=== PATIENT | female | born 1945 | race Caucasian/White ===

== ENCOUNTER 2016-10-27 08:00 | Inpatient (IN) | payer MEDICARE ==
[~2016-10-27] VITALS: Ht 172.7 cm; Wt 80.5 kg
[~2016-10-27 08:00] MED LIST: ACETAMINOPHEN500 M1 PO; BACTROBAN NASAL1 GM NASAL; BAYER CHEWABLE81 MG PO; COZAAR100 MG PO; GLUCOPHAGE500 MG PO; LOPRESSOR25 MG PO; MOBIC7.5 MG PO; NORVASC10 MG PO; OXYBUTYNIN CHLOR5 MG PO; PRAVACHOL40 MG PO
[2016-10-27 08:09] LABS: BASOPHILS 0.8 % (0.0-2.0); EOSINOPHILS 5.8 % (0-7); HEMATOCRIT 37.1 % (36.0-48.0); HEMOGLOBIN 11.6 g/dL (12-16); IMMATURE GRANULOCYTES 0.2 % (0-5); LYMPHOCYTES 35.3 % (15-50); MCH 27.3 pg (26.0-34.0); MCHC 31.3 g/dL (31.0-37.0); MCV 87.3 fL (80.0-100.0); MEAN PLATELET VOLUME 10.8 fL (7.4-10.4); MONOCYTES 10.2 % (2-11); NEUTROPHILS 47.7 % (40-80); PLATELET COUNT 226 10x3/uL (130-400); RBC 4.25 10x6/uL (4.00-5.40); RDW 14.4 % (11.5-14.5)
[2016-10-27 08:18] LABS: ANION GAP 10.8 mmol/L (8-16); CALCIUM 10.7 mg/dL (8.5-10.1); CARBON DIOXIDE 27.5 mmol/L (21.0-32.0); CREATININE - SERUM 0.9 mg/dL (0.6-1.3); POTASSIUM - SERUM 4.3 mmol/L (3.5-5.1)
[2016-10-27 08:24] LABS: APTT 34.1 SECONDS (22.8-39.4); INR 1.07 (0.85-1.17); PROTIME 13.7 SECONDS (11.6-15.0)
[2016-10-27 09:22] LABS: APPEARANCE HAZY (CLEAR); BILIRUBIN NEGATIVE (NEGATIVE); COLOR YELLOW (YELLOW); GLUCOSE NEGATIVE (NEGATIVE); KETONE NEGATIVE (NEGATIVE); LEUKOCYTE ESTERASE 1+ (NEGATIVE); NITRITE NEGATIVE (NEGATIVE); PROTEIN 1+ mg/dL (NEGATIVE); SPECIFIC GRAVITY 1.015 (1.005-1.020)
[2016-10-27 09:23] LABS: BACTERIA MODERATE /hpf (NONE SEEN); EPITHELIAL CELLS 0-5 /hpf (0-5); MUCUS <1+ /lpf (NONE SEEN); WHITE CELLS - URINE OCC /hpf (0-5)
[2016-11-01 08:21] VITALS: BP 153/71; BMI 26.9
--- NOTE | 2016-11-01 12:22 | NUR ---
VANC 1G INFUSING UPON ARRIVAL TO PACU
[2016-11-01 12:45] VITALS: BP 132/70
--- NOTE | 2016-11-01 12:45 | NUR ---
RECEIVED TO ROOM 2210 FROM RECOVERY ROOM VIA BED. ORIENTED TO ROOM AND CALL LIGHT SYSTEM. IS GIVEN TO PATIENT. STATES SHE KNOWS HOW TO USE. IT. SCDs TO BLE. CALL LIGHT IN REACH. FAMILY IN ROOM. WILL CONTINUE WITH PLAN OF CARE.
--- NOTE | 2016-11-01 14:17 | NUR ---
TJ PO. WORRIED ABOUT BP BEING LOW BUT IT IS 116/54 AT THIS TIME. EXPLAINED THAT IT IS OK FOR RIGHT NOW BUT WE WILL KEEP AN EYE ON IT.
--- NOTE | 2016-11-01 16:05 | NUR ---
RESTING WITH EYES CLOSED. RESP EVEN AND UNLABORED. CALL LIGHT IN REACH.
[2016-11-01 17:18] VITALS: BP 118/55
--- NOTE | 2016-11-01 17:40 | NUR ---
FSBS 107. NO INSULIN REQUIRED. EVENING MEDS ADMINISTERED. ANCEF IVPB. WILL PUT ON CPM AFTER PATIENT FINISHES EATING.
--- NOTE | 2016-11-01 18:24 | NUR ---
CPM PLACED TO RLE. NO OTHER CHANGES IN INITIAL ASSESSMENT. SCDs TO LLE. CALL LIGHT IN REACH. WILL CONTINUE WITH PLAN OF CARE.
[2016-11-01 18:40] VITALS: BP 118/55; Ht 172.7 cm; Wt 80.5 kg
[2016-11-01 21:00] VITALS: BP 142/65
[2016-11-02 01:00] VITALS: BP 155/68
--- NOTE | 2016-11-02 02:58 | NUR ---
EYES CLOSED RESPIRATIONS WITH EASE AND UNLABORED.
[2016-11-02 05:00] VITALS: BP 155/70
[2016-11-02 06:06] LABS: BASOPHILS 0.3 % (0.0-2.0); EOSINOPHILS 2.5 % (0-7); HEMATOCRIT 29.2 % (36.0-48.0); IMMATURE GRANULOCYTES 0.2 % (0-5); LYMPHOCYTES 24.9 % (15-50); MCH 27.4 pg (26.0-34.0); MCHC 30.8 g/dL (31.0-37.0); MCV 88.8 fL (80.0-100.0); MEAN PLATELET VOLUME 10.6 fL (7.4-10.4); MONOCYTES 12.3 % (2-11); NEUTROPHILS 59.8 % (40-80); PLATELET COUNT 184 10x3/uL (130-400); RBC 3.29 10x6/uL (4.00-5.40); RDW 14.5 % (11.5-14.5); WBC 6.5 10x3/uL (4.8-10.8)
[2016-11-02 06:47] LABS: ALBUMIN 2.8 g/dL (3.4-5.0); ANION GAP 10.6 mmol/L (8-16); BILIRUBIN - TOTAL 0.57 mg/dL (0.2-1.3); CARBON DIOXIDE 26.7 mmol/L (21.0-32.0); CREATININE - SERUM 0.9 mg/dL (0.6-1.3); POTASSIUM - SERUM 4.3 mmol/L (3.5-5.1); PROTEIN - SERUM 6.1 g/dL (6.4-8.2)
--- NOTE | 2016-11-02 07:20 | NUR ---
REQUESTED AND GIVEN OXY IR 10MG PO FOR C/O RIGHT KNEE PAIN LEVEL 6. WILL MONITOR.
--- NOTE | 2016-11-02 08:15 | NUR ---
AWAKE AND ALERT. CPM OFF. VOIDED 200cc CLEAR YELLOW URINE IN BED COTTRELL. SKIN CARE PER STAFF. LUNG S ARE CLEAR BILATERALLY,NO COUGH NOTED. SKIN IS INTACT WITHOUT REDNESS EXCEPT INCISION TO RIGHT KNEE WHICH HAS A DRY INTACT DRESSING IN PLACE. SCD'S IN PLACE. IV TO LEFT WRIST PATENT WITHOUT REDNESS AT INSERTION SITE. DENIES NEEDS. INSTRUCTED IN USE OF IS.
[2016-11-02 08:47] VITALS: BP 143/54
--- NOTE | 2016-11-02 09:15 | NUR ---
UP TO CHAIR AT BEDSIDE PER PT. REPORTS PAIN ONLY WITH ACTIVITY. ATE ALL OF BREAKFAST. DENIES NEEDS.
--- NOTE | 2016-11-02 12:00 | NUR ---
FSBS 190.REFUSED TO TAKE ANY INSULIN. STATED SHE HAS LIVED THIS LONG WITHOUT IT AND SHE ISN'T STARTING NOW.
--- NOTE | 2016-11-02 12:26 | NUR ---
FSBS 190. REFUSED INSULIN BECAUSE SHE WAS DRINKING A SODA. WILL MONITOR.
[2016-11-02 12:30] VITALS: BP 142/57
--- NOTE | 2016-11-02 16:21 | NUR ---
* Is the patient Alert and Oriented? Yes 0 * How many steps to enter\exit or inside your home? 0 0 * PCP Dr. Olive Paniagua 0 * Pharmacy [facility] 0 * Preadmission Environment Home with Family 0 * ADLs Independent 0 * Equipment Bedside Commode Rolling Walker 0 * List name and contact numbers for known caregivers / representatives who currently or will assist patient after discharge: Spouse - Ravinder [phone] Son - CROW [phone] 0 * Additional services required to return to the preadmission environment? Yes 0 * Can the patient safely return to the preadmission environment? Yes 0 * Has this patient been hospitalized within the prior 30 days at any hospital? No 11/02/2016 16:23 DCP: Discharge Planning Patient Name: CISCO CASTRO Admission Status: Elective Accout number: [id number] Admission Date: 11-01-2016 : 1945 Admission Diagnosis: Attending: CANDY Current LOS: 1 Anticipated DC Date: 11-04-2016 Planned Disposition: Outpatient PT\OT Primary Insurance: [facility] Discharge Planning Comments: CM met with patient to assess dc plans/needs. Patient states she lives at home with her , Ravinder. She reports she is independent with all ADL's & IADL's. She has a walker & BSC from previous knee surgery. She has chosen to go to [facility] ([facility]) for outpatient physical therapy. Anticipate DC tomorrow afternoon or Monday morning. CM will follow.
--- NOTE | 2016-11-02 17:00 | NUR ---
FSBS 166. REFUSED INSULIN. SUPPER TRAY SERVED IN ROOM..
[2016-11-02 17:29] VITALS: BP 141/65
--- NOTE | 2016-11-02 18:00 | NUR ---
CPM IN PLACE. NO CHANGES NOTED. DENIES NEEDS.
--- NOTE | 2016-11-02 19:36 | NUR ---
PATIENT IN SEMI-FOWLERS POSITION. PATIENT STATED SHE DOES NOT NEED ANYTHING AT THIS TIME.
[2016-11-02 21:00] VITALS: BP 156/60
[2016-11-03 01:00] VITALS: BP 169/68
[2016-11-03 05:20] VITALS: BP 163/58
[2016-11-03 05:43] LABS: HEMATOCRIT 27.4 % (36.0-48.0); HEMOGLOBIN 8.6 g/dL (12-16); MCH 27.2 pg (26.0-34.0); MCHC 31.4 g/dL (31.0-37.0); RBC 3.16 10x6/uL (4.00-5.40); RDW 14.1 % (11.5-14.5)
[2016-11-03 05:47] LABS: MCV 86.7 fL (80.0-100.0); WBC 10.5 10x3/uL (4.8-10.8)
--- NOTE | 2016-11-03 07:49 | NUR ---
AWAKE AND ALERT. ORIENTED X3. NO C/O AT THIS TIME. SCD'S IN PLACE. ON CPM AT THIS TIME. LUNGS ARE CLEAR BILATERALLY,NO COUGH NOTED. SKIN IS INTACT WITHOUT REDNESS EXCEPT INCISION TO RIGHT KNEE WHICH HAS A CLEAN DRY DRESSING IN PLACE. IV TO LEFT FOREARM PATENT WITHOUT REDNESS AT INSERTION SITE.
--- NOTE | 2016-11-03 08:03 | OP ---
PATIENT NAME: CISCO CASTRO MEDICAL RECORD: [id number] :47 LOCATION:D.[facility] ADMISSION DATE:11/01/16 SURGEON: ADRIANNA HAMM MD DATE OF OPERATION: 11/01/2016 PREOPERATIVE DIAGNOSIS: Right knee degenerative joint disease. POSTOPERATIVE DIAGNOSIS: Right knee degenerative joint disease. PROCEDURE PERFORMED: Right total knee arthroplasty. SURGEON: Uriel Hamm MD ANESTHESIA: General with a block for postop pain. CONDITION: She tolerated the procedure well, was transferred to recovery room in stable condition at termination of procedure. TOURNIQUET TIME: 57 minutes. ESTIMATED BLOOD LOSS: Minimal. INDICATIONS: This is a pleasant 71-year-old female with advanced degenerative changes of her knee. This has been getting progressively worse. She presents for total knee arthroplasty. She is not tolerating nonoperative treatments. We discussed risks, benefits, and alternatives. She understood and wished to proceed. OPERATIVE REPORT: The patient was taken to the operating room and placed in supine position. General anesthesia was obtained. Her right leg was confirmed to be the correct leg. It was prepped and draped in normal fashion. After the prep and drape, she had a secondary ChloraPrep and Ioban dressing placement. He was then exsanguinated with an Stuart wrap and tourniquet was elevated to 350. This is followed by a midline incision, then medial parapatellar incision. The patella was everted. The fat pad was excised. Medial soft tissue sleeve was elevated. ____ and guide were placed into the distal femur. This was placed and the distal femoral cut was made. I then proceeded to place the block, sized it at 70, made the rest of the distal femoral cuts. I then proceeded to sublux the tibia forward, placed the guide and made a proximal tibial cut. The proximal tibia was sized at a 75. The 2 components were placed together and then marked for rotation. Following which, a 75 tibia was punched. I also removed very significant large osteophytes from her posterior joint. The remnants of the menisci were also removed. The back side of the patella was largely effected with osteophytes. These were removed and a 34 button was sized and then drilled for. I then copiously irrigated, following which I placed a 70 femur, 75 tibia, 34 three-peg hole patellar button and a 10 poly while the cement dried. Once the cement was dry, I took out the trial poly, took out excess cement then trialed again and placed the final 10 poly. She felt very good in flexion and extension with this. She was then copiously irrigated, following which she was closed with a #1 barbed PDS followed by 2-0 Vicryl, then guerline and a soft dressing. She was awakened and transferred to recovery room in stable condition, having tolerated the procedure well. TRANSINT:[id number] Voice Confirmation ID: [id number] DOCUMENT ID: [id number] OPERATIVE REPORT [id number] CISCO CASTRO, ADRIANNA LOZADA MD at 0803 CC: [id number] DICTATION DATE: 11/01/16 1442 GEAR GRINDER: 11/01/16 1526 [facility] [place] [id number] [place] [address]
[2016-11-03 09:08] VITALS: BP 176/71
--- NOTE | 2016-11-03 10:00 | NUR ---
UP TO [facility] ONE PERSON ASSIST. VOIDED CLEAR YELLOW URINE WITHOUT DIFFICULTY. SKIN CARE PER SELF.
--- NOTE | 2016-11-03 10:41 | CN ---
PATIENT NAME:CISCO LYNN MEDICAL RECORD: [id number] : 49 LOCATION:D.[facility] ADMIT DATE: 11/01/16 ACCOUNT: [id number] CONSULTING PHYSICIAN: MARTINEZ EDWARDS DO REFERRING PHYSICIAN: ADRIANNA HAMM MD DATE OF CONSULTATION: 11/01/2016 REFERRING PHYSICIAN: Dr. Uriel Hamm. HISTORY OF PRESENT ILLNESS: Ms. Lynn is a 71-year-old white female, a patient of Dr. Jo, who is seen postoperatively after undergoing right total knee replacement per Dr. Hamm. Consulted for medical management. She has a history of hypertension and diabetes mellitus. She states that she has had good control of both. She is on oral medicines. She is unaware of what her last hemoglobin A1c was. Postoperatively, she is pain free at this time and a block is in place. PAST MEDICAL HISTORY: Significant for known hypertension, diabetes mellitus, osteoarthritis, and hyperlipidemia. PAST SURGICAL HISTORY: Include section, left total knee great toe. ALLERGIES: LUKAS AND NAPROXEN. HOME MEDICATIONS: Include meloxicam 15 daily, amlodipine 10 a day, metoprolol 25 b.i.d., pravastatin 40 mg a day, metformin 500 b.i.d., Cozaar 100 mg a day, oxybutynin 5 mg a day, aspirin a day, Bactrim and p.r.n. acetaminophen. FAMILY HISTORY: Significant for diabetes. SOCIAL HISTORY: She is a former smoker. She does drink alcohol. REVIEW OF SYSTEMS: She denies any recent fever, chills, or sweats. She denies any recent chest pain or shortness of breath. She does complain of chronic knee pain and chronic osteoarthritis-type pain. LABORATORY DATA: Her white count is 6, H&H is 11.6 and 37.1, and platelets are 226. Blood sugar ____, potassium 4.3, BUN and creatinine are okay. INR is okay. PHYSICAL EXAMINATION: HEAD: Normocephalic. NECK: Soft and supple. HEART: Regular. LUNGS: Clear. ABDOMEN: Soft. EXTREMITIES: Left knee dressing dry and intact. NEUROLOGIC: Without any gross focal deficits. IMPRESSION: 1. Degenerative joint disease knee, status post total knee replacement. 2. Type 2 diabetes, hypertension and osteoarthritis. PLAN: We will monitor sugars and H&H postoperatively. Follow pathways. See orders for rest of plan. CONSULT REPORT [id number] CISCO LYNN Thanks for the consult. TRANSINT:[id number] Voice Confirmation ID: [id number] DOCUMENT ID: [id number] MARTINEZ EDWARDS DO at 1041 CC: [id number] DICTATION DATE: 11/01/161651 GLASS POLISHER: 11/01/16 1858 ADM IN [place] [id number] [place] [id number]
[2016-11-03 10:55] LABS: ALKALINE PHOSPHATASE 75 U/L (46-116); ALT (SGPT) 22 U/L (10-68); BILIRUBIN - TOTAL 0.89 mg/dL (0.2-1.3); CALC OSMOLALITY 277 mosm/kg (275-300); CALCIUM 9.5 mg/dL (8.5-10.1); CHLORIDE - SERUM 103 mmol/L (98-107); CREATININE - SERUM 0.7 mg/dL (0.6-1.3); GLUCOSE 131 mg/dL (74-106); PROTEIN - SERUM 6.4 g/dL (6.4-8.2); SODIUM 139 mmol/L (136-145); UREA NITROGEN 8 mg/dL (7-18); eGFR NON AFRICAN AMERICAN 88 mL/min (90-120)
[2016-11-03 12:30] VITALS: BP 152/64
--- NOTE | 2016-11-03 12:30 | NUR ---
FSBS 127.NO COVERAGE REQUIRED. LUNCH SERVED IN ROOM.
--- NOTE | 2016-11-03 14:30 | NUR ---
RESTING IN BED. DENIES NEEDS.
[2016-11-03 16:19] VITALS: BP 151/56
--- NOTE | 2016-11-03 16:19 | NUR ---
11/03/2016 16:19 DCP: Discharge Planning CPM ordered through [facility] - will be delivered to the home after discharge. Outpatient physical therapy appt. scheduled @ [facility] 11/07 @ 1100. Rx faxed. Anticipate dc tomorrow. CM will follow.
--- NOTE | 2016-11-03 18:30 | NUR ---
ATE ONLY A FEW BITES OF SUPPER. REFUSED OFFER OF ALTERNATIVE TRAY. I'M JUST NOT HUNGRY. NO CHANGES NOTED. DENIES NEEDS.
--- NOTE | 2016-11-03 19:45 | NUR ---
PUT PATIENT ON THE CPM MACHINE. PATIENT STATED SHE DOES NOT NEED ANYTHING AT THIS TIME.
[2016-11-03 21:00] VITALS: BP 164/57
[2016-11-04 01:00] VITALS: BP 155/58
[2016-11-04 05:00] VITALS: BP 150/57
[2016-11-04 08:38] VITALS: BP 155/67
--- NOTE | 2016-11-04 09:22 | NUR ---
SCHEDULED MEDICATIONS ADMINISTERED AT THIS TIME. UP IN CHAIR PER PHYSICAL THERAPY. HOPEFUL FOR D/C TODAY. ASSESSMENT PERFORMED PER FLOWSHEET. CALL LIGHT IN REACH, WILL CONTINUE WITH PLAN OF CARE.
[2016-11-04] MEDS ORDERED: OXYCODONE HCL5 MG PO (10:11)
[2016-11-04] MEDS ORDERED: ELIQUIS2.5 MG PO (10:12)
[2016-11-04 11:56] VITALS: BP 107/65
--- NOTE | 2016-11-04 12:10 | NUR ---
IV TO LEFT FOREARM D/C WITH CATH TIP INTACT. EXISTING DRESSING TO RIGHT KNEE REMOVED AND REPLACED WITH AQUACEL AG DRESSING USING STERILE TECHNIQUE PER ORDER. AT BEDSIDE. D/C PAPERWORK REVIEWED WITH PT AND PT DENIES QUESTIONS OR CONCERS. PRESCRIPTION GIVEN FOR OXY IR AND ELIQUIS.
--- NOTE | 2016-11-04 14:00 | NUR ---
CM REASSESSMENT NOTE: PATIENT D/C HOME TODAY BY PRIVATE CAR. [facility]ARE [facility] NOTIFIED. LATE ENTRY
--- NOTE | 2016-11-23 07:00 | DS ---
PATIENT:CISCO CASTRO :49 MEDICAL RECORD: [id number] DISCHARGE SUMMARY ADMISSION DATE: 11/01/16 DISCHARGE DATE: 11/04/16 DATE OF ADMSSION: 11/01/2016 DATE OF DISCHARGE: 11/04/2016 ADMITTING DIAGNOSIS: Right knee degenerative joint disease. DISCHARGE DIAGNOSES: Right knee degenerative joint disease plus acute blood loss anemia. HISTORY OF PRESENT ILLNESS: A very pleasant 71-year-old female with advanced degenerative changes of her knee. This has gotten progressively worse. She was brought into the hospital for a total knee arthroplasty. She did very well with the procedure. It was felt that by the , she could be discharged to home self care. She was there going to continue on total knee arthroplasty protocols, continue on anticoagulation therapy and on her pain medications. The plan is for her to see us back in the office in about 2 weeks. DISCHARGE DIAGNOSES: 1. Right knee degenerative joint disease. 2. Postoperative acute blood loss anemia. PLAN: To see her back in the office in about 2 weeks. TRANSINT:[id number] Voice Confirmation ID: [id number] DOCUMENT ID: [id number] ADRIANNA MEDINA MD at 0700 CC: [id number] DICTATION DATE: 11/22/16 1145 CRIMP SETTER: 11/22/16 1242 [facility] IN 11/04/16 [place] [id number] [place] [address]
== END 2016-11-04 12:30 | disposition home or self-care (01) | DRG 470 ==
LOC: D.SDCHOLD 11-01 05:16 → D.MS 11-01 05:16 → D.SDCHOLD 11-01 08:00 → D.MS 11-01 10:27 → D.SDCHOLD 11-01 10:30 → D.MS 11-04 12:30
PROVIDERS: Family Medicine; ADMIT Orthopaedic Surgery Sports Medicine
PROC: 0SRC0J9 Replacement of Right Knee Joint with Synthetic Substitute, Cemented, Open Approach (ICD-10-PCS; principal; 2016-11-01 10:00)
DX: M17.11 Unilateral primary osteoarthritis, right knee (principal); D62 Acute posthemorrhagic anemia; E11.9 Type 2 diabetes mellitus without complications; I10 Essential (primary) hypertension; Z87.891 Personal history of nicotine dependence; E78.5 Hyperlipidemia, unspecified; M25.711 Osteophyte, right shoulder